=== PATIENT | female | born 1945 | race Caucasian/White ===

== ENCOUNTER 2018-10-27 16:05 | Observation (INO) ==
[2018-10-27] MEDS ORDERED: APRESOLINE IV ONE (16:26)
[2018-10-27] MEDS ORDERED: ZOFRAN IV ONE (16:26)
[2018-10-27] MEDS ORDERED: MORPHINE IV ONE (16:26)
--- NOTE | 2018-10-27 16:39 | EKG Report ---
Test Performed on : 10/27/2018 4:15:53 PM Test Reason : HTN Blood Pressure : / mmHG Vent. Rate : 085 BPM Atrial Rate : 085 BPM P-R Int : 148 ms QRS Dur : 076 ms QT Int : 380 ms P-R-T Axes : 055 032 059 degrees QTc Int : 452 ms Normal sinus rhythm. Nonspecific T wave abnormality Abnormal ECG No previous ECGs available Unconfirmed Result
[2018-10-27 16:58] LABS: BASO# 0.03 X1000 (0.0-0.2); BASO% 0.5 % (0.0-0.8); EOS# 0.21 X1000 (0.0-0.7); EOS% 3.4 % (0.0-10.0); HEMATOCRIT 41.1 % (37.0-47.0); HEMOGLOBIN 13.2 g/dL (12.0-16.0); IMM GRAN# 0.03 X1000 (0.0-0.04); IMM GRAN% 0.5 % (0.0-0.5); LYMPH# 1.67 X1000 (1.2-3.4); LYMPH% 27.3 % (20.5-51.1); MCH 28.2 PG (27-31); MCHC 32.1 g/dL (33-37); MCV 87.8 FL (81-99); MONO# 0.88 X1000 (0.11-0.59); MONO% 14.4 % (1.7-9.3); MPV 9.7 FL (7.4-10.4); NEUT% 53.9 % (42.2-75.2); PLT 294 X1000 (130-400); RBC 4.68 XMIL (4.2-5.4); RDW 14.2 % (11.5-14.5); WBC 6.12 X1000 (4.8-10.8)
--- NOTE | 2018-10-27 17:04 | Diag Imaging Result Doc PS360 ---
EXAM: CHEST-PORTABLE HISTORY: HTN,WEAKNES TECHNIQUE: Chest single view COMPARISON: None. FINDINGS: Poor inspiratory effort. The heart is mildly prominent. The vessels are not distended. There are no infiltrates. No effusion identified. IMPRESSION: Mildly prominent heart. Electronically signed by Laron Mora 10/27/2018 5:02 PM
[2018-10-27 17:14] LABS: INR 0.9; PROTIME 12.6 Seconds (11.0-16.0)
[2018-10-27 17:15] LABS: PTT 25.2 Seconds (22.3-41.8)
[2018-10-27 17:27] LABS: BILIRUBIN URINE NEGATIVE (NEGATIVE); BLOOD URINE NEGATIVE (NEGATIVE); CLARITY CLEAR (CLEAR); COLOR YELLOW; GLUCOSE URINE NEGATIVE (NEGATIVE); KETONE URINE NEGATIVE (NEGATIVE); LEUKOCYTES URINE TRACE (NEGATIVE); NITRITE URINE NEGATIVE (NEGATIVE); PH URINE 6.5; PROTEIN URINE 1+(30 mg/dL) mg/dL (NEGATIVE); UROBILINOGEN URINE NORMAL
[2018-10-27 17:35] LABS: CALCIUM 9.9 mg/dL (8.8-10.2); CREATININE 1.1 mg/dL (0.5-0.9); POTASSIUM 4.3 mmol/L (3.5-5.1)
[2018-10-27 17:36] LABS: URINE BACTERIA NEGATIVE /HFP; URINE EPITHELIAL CELLS <10 /HPF (<10); URINE RBC <10 /HPF (<10); URINE SOURCE CLEAN CATCH; URINE WBC <10 /HPF (<10); URINE YEAST PRESENT /HPF
--- NOTE | 2018-10-27 19:11 | PROVIDER DOCUMENTATION ---
This chart was entered by Lissette Brush Scribe, acting as scribe for Prabhjot Day MD. HPI-Neurological Disorder - General Source: patient, family (daughter) - History of Present Illness-Neuro Headache Location: reports: global Severity: reports: mild Onset/Duration: reports: this morning Timing: reports: improving Character of Altered Mental Status: reports: disoriented Any recent trauma/injury?: reports: none Character of Deficits: reports: new weakness, altered sensation, impaired speech New weakness or altered sensation location:: reports: general (diffuse) Cognitive Baseline: alert, oriented x3 Associated Symptoms: reports: headache, fatigue, slurred speech, weakness Similar Symptoms Previously?: No Recently seen or treated by another doctor?: No <Prabhjot Day - Last Filed: 10/27/18 19:11> <Reji Romero - Last Filed: 10/27/18 20:55> - General Chief Complaint: Altered Mental Status Stated Complaint: STROKE SX Time Seen by Provider: 10/27/18 16:33 Allergies/Adverse Reactions: Patient Allergies Allergy/AdvReac Type Severity Reaction Status Date / Time No Known Allergies Allergy Verified 10/27/18 16:24 Home Medications: Home Medication List Medication Instructions Recorded Confirmed Last Taken Type Ascorbic Acid [Vitamin C] 1 tab PO DAILY 10/27/18 10/27/18 Unknown History Atorvastatin Calcium 1 tab PO HS 10/27/18 10/27/18 Unknown History BENAZEpril [Lotensin] 1 tab PO DAILY 10/27/18 10/27/18 Unknown History Calcium Carbonate/Vitamin D3 1 tab PO DAILY 10/27/18 10/27/18 Unknown History [Calcium 600-Vit D3 800 Tablet] Canagliflozin [Invokana] 1 tab PO QAM 10/27/18 10/27/18 Unknown History Gemfibrozil [Lopid] 1 tab PO BID 10/27/18 10/27/18 Unknown History Glimepiride 1 tab PO DAILY 10/27/18 10/27/18 Unknown History Latanoprost 1 drp BOTH EYES HS 10/27/18 10/27/18 Unknown History Levothyroxine Sodium 1 tab PO DAILY 10/27/18 10/27/18 Unknown History Losartan Potassium 1 tab PO DAILY 10/27/18 10/27/18 Unknown History Metoprolol Succinate 1 tab PO DAILY 10/27/18 10/27/18 Unknown History Montelukast Sodium 1 tab PO DAILY 10/27/18 10/27/18 Unknown History Multivit,Th Iron,Other Min 1 tab PO DAILY 10/27/18 10/27/18 Unknown History [Complete Multivitamin] Raymond-3 Fatty Acids/Fish Oil [Fish 1 cap PO DAILY 10/27/18 10/27/18 Unknown History Oil 1,000 mg Softgel] Omeprazole 20 mg PO DAILY 10/27/18 10/27/18 Unknown History Sitagliptin Phosphate [Januvia] 1 tab PO DAILY 10/27/18 10/27/18 Unknown History - History of Present Illness-Neuro Nature of Presenting Problem: 73yof presents to ED cc headache, disoriented, speech little slurred and motor skills a little slow since this morning. Pt denies fever, abdominal pain, dysuria, chest pain, N/V/D. Pt is A&Ox3 and in no apparent distress upon exam. Pt has hx of HTN and b/p was 234/93 upon exam. (Prabhjot Day) Review of Systems - Adult - REVIEW OF SYSTEMS - ADULT Constitutional: reports: see HPI, fatique. denies: chills, fever Eyes: reports: no symptoms reported Ears, Nose, Mouth & Throat: reports: no symptoms reported Cardiovascular: reports: see HPI. denies: chest pain Respiratory: reports: no symptoms reported Gastrointestinal: reports: see HPI. denies: abdominal pain, diarrhea, nausea, vomiting Genitourinary: reports: see HPI. denies: dysuria Musculoskeletal: reports: no symptoms reported Integumentary: reports: no symptoms reported Neurological: reports: see HPI, headache/migraines, slurred speech (mild) Psychiatric: reports: no symptoms reported Endocrine: reports: no symptoms reported Hematologic/Lymphatic: reports: no symptoms reported Allergic/Immunologic: reports: no symptoms reported All Other Systems: Reviewed and Negative <Prabhjot Day - Last Filed: 10/27/18 19:11> Past History - Adult - PAST MEDICAL HISTORY-ADULT Review of Records: reports: Nursing Assessment Review, Medications Reviewed, Social history reviewed & non-contributory. Major Childhood Illnesses: reports: denies history Cardiovascular: reports: HTN Respiratory: reports: denies history Gastrointestinal: reports: denies history Obstetrical/Gynecological: reports: denies history Genitourinary: reports: denies history Musculoskeletal: reports: denies history Neurological: reports: denies history Endocrine/Immune: reports: Diabetes Other Conditions: reports: denies history - PRIOR SURGERIES/PROCEDURES Surgical/Procedure History: reports: appendectomy, cholecystectomy, hysterectomy - IMMUNIZATION STATUS Childhood Immunizations: See Nurse Assessment Flu Vaccine: See Nurse Assessment - FAMILY HISTORY Family History: reviewed, not pertinent - SOCIAL HISTORY Smoking: denies <Prabhjot Day - Last Filed: 10/27/18 19:11> Physical Exam- Neurological - Physical Exam-Neuro Initial Vital Signs Reviewed: Yes General Appearance: appears well, alert, no apparent distress. negative: anxious, combative Eye Exam: bilateral eye: normal inspection, PERRL HENMT: normocephalic/atraumatic, moist mucous membranes. negative: angioedema Head Injury: no evidence of injury. negative: active bleeding, Valencia's Sign, contusions, ecchymosis, flap, lacerations, raccoon eyes, swelling, tenderness, other Neck: non-tender, full range of motion, supple, normal inspection. negative: C- spine tenderness Respiratory: chest non-tender, lungs clear, normal breath sounds. negative: wheezing Cardiovascular: normal peripheral pulses, regular rate, rhythm, no edema. negative: bradycardia, tachycardia Abdominal Exam: normal bowel sounds, non tender, soft. negative: rebound Extremity: normal inspection. 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 negative: normal speech (slightly slurred) Coordination/Gait: normal finger to nose Motor/Sensory: no sensory deficit, no pronator drift. negative: no motor deficit (mildly slow) Integumentary: normal color. negative: ecchymosis, jaundice Psych/Mental Status: normal mood/affect, oriented x 3. negative: anxious, dishe veled - Glascow Coma Scale Best Eye Response: (4) open spontaneously Best Verbal Response: (5) oriented Best Motor Response: (6) obeys commands Total Glascow Score: 15 <Prabhjot Day - Last Filed: 10/27/18 19:11> Progress - PLAN OF CARE/RESULTS Result Diagrams: 10/27/18 16:45 10/27/18 16:45 - REASSESSMENT Reassessment #1 Time Reassessed: 18:27 Status: improving (H/A RESOLVE, BP DOWN OT 141/58. CT HEAD STILL PENDING.) - EKG 1 Time of EKG reading by physician:: 16:16 EKG Read and Signed by:: Prabhjot Day EKG Interpretation (*Must complete 3 of following elements*): Abnormal Rate: 85 Rhythm: NSR QRS: normal ST Wave: non-specific ST changes - XRAY 1 XRAY: Bilateral XRAY Study: Chest Impression: See EMR Report (MPRESSION: Mildly prominent heart. Electronically signed by Laron Mora 10/27/2018 5:02 PM) - CHANGE OF SHIFT REPORT (ED Provider) 1 Report Given and Care Transferred to:: DR Eric ROMERO Items Pending: CT/MRI Results <Prabhjot Day - Last Filed: 10/27/18 19:11> - PLAN OF CARE/RESULTS Result Diagrams: 10/27/18 16:45 10/27/18 16:45 - REASSESSMENT Reassessment #2 Time Reassessed: 19:50 Status: other (pt mildy confused. has some delay in comprehension, which is not normal for her as per the daughters. will admit, hospitalist paged.) - CONSULTS/PCP/HOSPITALIST Notification #1 *Consult/PCP/Hospitalist*: dr khan Time Discussed: 20:28 Consult Disposition: Admit <Reji Romero - Last Filed: 10/27/18 20:55> - PLAN OF CARE/RESULTS Progress/Plan/Lab Results: Vital Signs - 8 hr 10/27/18 16:17 10/27/18 17:14 Temperature 97.7 F Pulse Rate 87 80 Respiratory Rate 18 24 Blood Pressure 226/95 174/96 O2 Sat by Pulse Oximetry 95 97 Laboratory Results - last 24 hr 10/27/18 10/27/18 10/27/18 16:14 16:45 16:45 WBC 6.12 RBC 4.68 Hgb 13.2 Hct 41.1 MCV 87.8 MCH 28.2 MCHC 32.1 L RDW Std Deviation 14.2 Plt Count 294 MPV 9.7 Immature Gran % (Auto) 0.5 Neut % (Auto) 53.9 Lymph % (Auto) 27.3 Mcmullen % (Auto) 14.4 H Eos % (Auto) 3.4 Baso % (Auto) 0.5 Immature Gran # (Auto) 0.03 Neut # (Auto) 3.30 Lymph # (Auto) 1.67 Mcmullen # (Auto) 0.88 H Eos # (Auto) 0.21 Baso # (Auto) 0.03 PT INR PTT (Actin FS) Sodium 140 Potassium 4.3 Chloride 105 Carbon Dioxide 22 L Anion Gap 13 BUN 32 H Creatinine 1.1 H Estimated GFR/1.73 m2 48 BUN/Creatinine Ratio 29 Glucose 145 H POC Glucose 150 H Calculated Osmolality 289 Calcium 9.9 Magnesium Troponin T Free T4 Urine Source Urine Color Urine Clarity Urine pH Ur Specific [place] Urine Protein Urine Ketones Urine Blood Urine Nitrite Urine Bilirubin Urine Urobilinogen Urine Microscopic RBC Urine WBC Urine Microscopic WBC Ur Epithelial Cells Urine Bacteria Urine Yeast Urine Glucose 10/27/18 10/27/18 10/27/18 16:45 16:45 16:45 WBC RBC Hgb Hct MCV MCH MCHC RDW Std Deviation Plt Count MPV Immature Gran % (Auto) Neut % (Auto) Lymph % (Auto) Mcmullen % (Auto) Eos % (Auto) Baso % (Auto) Immature Gran # (Auto) Neut # (Auto) Lymph # (Auto) Mcmullen # (Auto) Eos # (Auto) Baso # (Auto) PT 12.6 INR 0.90 PTT (Actin FS) 25.2 Sodium Potassium Chloride Carbon Dioxide Anion Gap BUN Creatinine Estimated GFR/1.73 m2 BUN/Creatinine Ratio Glucose POC Glucose Calculated Osmolality Calcium Magnesium 1.6 Troponin T Free T4 1.82 H Urine Source Urine Color Urine Clarity Urine pH Ur Specific [place] Urine Protein Urine Ketones Urine Blood Urine Nitrite Urine Bilirubin Urine Urobilinogen Urine Microscopic RBC Urine WBC Urine Microscopic WBC Ur Epithelial Cells Urine Bacteria Urine Yeast Urine Glucose 10/27/18 10/27/18 16:45 17:00 WBC RBC Hgb Hct MCV MCH MCHC RDW Std Deviation Plt Count MPV Immature Gran % (Auto) Neut % (Auto) Lymph % (Auto) Mcmullen % (Auto) Eos % (Auto) Baso % (Auto) Immature Gran # (Auto) Neut # (Auto) Lymph # (Auto) Mcmullen # (Auto) Eos # (Auto) Baso # (Auto) PT INR PTT (Actin FS) Sodium Potassium Chloride Carbon Dioxide Anion Gap BUN Creatinine Estimated GFR/1.73 m2 BUN/Creatinine Ratio Glucose POC Glucose Calculated Osmolality Calcium Magnesium Troponin T < 0.010 Free T4 Urine Source CLEAN CATCH Urine Color YELLOW Urine Clarity CLEAR Urine pH 6.5 Ur Specific [place] 1.010 Urine Protein 1+(30 mg/dL) A Urine Ketones NEGATIVE Urine Blood NEGATIVE Urine Nitrite NEGATIVE Urine Bilirubin NEGATIVE Urine Urobilinogen NORMAL Urine Microscopic RBC <10 Urine WBC TRACE A Urine Microscopic WBC <10 Ur Epithelial Cells <10 Urine Bacteria NEGATIVE Urine Yeast PRESENT Urine Glucose NEGATIVE Orders Category Date Time Status Admit - [facility] Routine AdmDCTranf 10/27/18 20:48 Ordered Cardiac Monitoring DIRECTED Care 10/27/18 16:27 Active Neurological Check Q4H Care 10/27/18 20:49 Ordered Saline Loc DIRECTED Care 10/27/18 20:48 Ordered Saline Loc NOW Care 10/27/18 16:27 Active Vital Signs Order ROUTINE Care 10/27/18 20:48 Ordered Z-Document. for Tele Applied ORDERED Care 10/27/18 20:49 Ordered Heart Healthy Diet Diet 10/27/18 20:50 Ordered CHEST-PORTABLE [RAD] Stat Exams 10/27/18 16:[address] HEAD W/O CONTRAST [CT] Stat Exams 10/27/18 18:26 Completed MRI BRAIN W/WO CONTRAST [MRI] Stat Exams 10/27/18 20:48 Ordered BASIC METABOLIC PANEL [CHEM] Stat Lab 10/27/18 16:45 Completed CBC WITH ELECTRONIC DIFF [HEME] Stat Lab 10/27/18 16:45 Completed FREE T4 Stat Lab 10/27/18 16:45 Completed MAGNESIUM [CHEM] Stat Lab 10/27/18 16:45 Completed PROTIME WITH INR [COAG] Stat Lab 10/27/18 16:45 Completed PTT [COAG] Stat Lab 10/27/18 16:45 Completed TROPONIN T Stat Lab 10/27/18 16:[address] W/POSS RFLX CULT [URINALYSIS] Stat Lab 10/27/18 17:00 Completed URINE CULTURE [RM] Routine Lab 10/27/18 17:36 Ordered Hydralazine [Apresoline] Med 10/27/18 16:26 Discontinued 10 mg IV NOW ONE Morphine Med 10/27/18 16:26 Discontinued 4 mg IV NOW ONE Ondansetron [Zofran] Med 10/27/18 16:26 Discontinued 4 mg IV NOW ONE Telemetry [OM.EQ] Routine Oth 10/27/18 20:48 Ordered EKG [EKG] Stat Ther 10/27/18 16:28 Draft Departure - Departure Date of Disposition Decision: 10/27/18 Certified Medical Emergency: Emergent <Prabhjot Day - Last Filed: 10/27/18 19:11> - Departure Time of Disposition Decision: 19:55 Certified Medical Emergency: Emergent - Critical Care Note This patient required my direct & personal management of CC.: No <Reji Romero - Last Filed: 10/27/18 20:55> - Departure DIAGNOSIS: Uncontrolled hypertension, TIA (transient ischemic attack), Altered mental status Disposition: ADMITTED INPATIENT 09 Condition: Stable Additional Freetext Instructions: ED Follow Up Instructions: You have been treated by a care provider in the Emergency Department. These instructions are being provided to you so you can have an understanding of how to care for yourself upon discharge. Upon discharge from the Emergency Department, you are responsible for making arrangements for follow-up care by a physician of your choice. Take all prescribed medications as directed. Return to the Emergency Department immediately for any new or worsening symptoms. You may call the Physician Referral phone number at [phone] to obtain a list of Physicians who are taking new patients. Referrals and Follow-Ups: Fabien Lucas MD [Primary Care Provider] - Attestation - Physician/ KEITH Attestation Patient care was provided by Advanced Practice Provider:: No The physician spent face to face time with patient:: Yes Advanced Practice Provider documentation review:: Supervising physician onsite and consulted in the evaluation and care of this patient. The physician did have a face to face encounter with the patient. <Prabhjot Day - Last Filed: 10/27/18 19:11> - NIH Stroke Scale NIH Type: Discharge Evaluation Level of Consciousness: 0-Alert LOC Questions (ask month and age): 0-Answers Both Correctly LOC Commands (ask to open & close eyes;make a fist, let go): 0-Obeys Both Correctly (SLOW IN EXECUTION) Best Gaze (horizontal eye movement): 0-Normal Visual (use finger movement, counting or visual threat): 0-No Visual Loss Facial Palsy (show teeth or raise eyebrows & close eyes tght: 0-Symmetrical Movement Motor Function-left arm: 0-Normal Motor Function-right arm: 0-Normal Motor Function-left le-Normal Motor Function-right le-Normal Limb Ataxia(dhrzjv-lhfv-jkppnd, or heel to hewitt): 0-No Ataxia (PT NEEDS DEMONSTRATION EVERYTIME, NOT COMPREHENDING NORMALLY) Sensory(pin prick to face,arms,trunk,legs-compare side/side): 0-No Ataxia Best Language(name item/read sentence.Ex-Down to Earth): 0-No Aphasia Dysarthria(Pt read words or say words Ex.Mama,Tip-Top,Thanks: 0-Normal Articulation Extinction and Inattention: 0-Normal NIH Total Score: 0 <Reji Romero - Last Filed: 10/27/18 20:55> This chart was documented by the indicated scribe, (Lissette Brush, Scribe) and accurately reflects the services I performed and decisions made by me, [facility],Prabhjot Pedroza MD, as attested by the provider's signature.
--- NOTE | 2018-10-27 19:32 | Diag Imaging Result Doc PS360 ---
EXAM: CT HEAD W/O CONTRAST HISTORY: STROKE Vs HTN ENCEPHALOPATHY TECHNIQUE: CT head without contrast COMPARISON: 02/24/2018 FINDINGS: No parenchymal hemorrhage. No epidural or subdural hematoma. No subarachnoid hemorrhage. There are chronic microvascular ischemic changes with multiple old small bilateral infarcts. No mass identified on this noncontrasted exam. No hydrocephalus. No sinus opacification although there is multisinus mucosal thickening and a small amount of mucus. IMPRESSION: 1.No hemorrhage 2.Chronic microvascular ischemic changes with multiple old small bilateral infarcts This exam was performed using automated exposure control, adjustment of mA or kV according to patient size, and/or use of iterative reconstruction technique. Electronically signed by Laron Mora 10/27/2018 7:30 PM
[2018-10-28 02:16] LABS: BILIRUBIN URINE NEGATIVE (NEGATIVE); BLOOD URINE NEGATIVE (NEGATIVE); CLARITY CLEAR (CLEAR); COLOR YELLOW; GLUCOSE URINE NEGATIVE (NEGATIVE); KETONE URINE NEGATIVE (NEGATIVE); LEUKOCYTES URINE TRACE (NEGATIVE); NITRITE URINE NEGATIVE (NEGATIVE); PROTEIN URINE 1+(30 mg/dL) mg/dL (NEGATIVE); SP GRAVITY URINE 1.015; URINE BACTERIA NEGATIVE /HFP; URINE EPITHELIAL CELLS <10 /HPF (<10); URINE RBC <10 /HPF (<10); URINE SOURCE CLEAN CATCH; URINE WBC <10 /HPF (<10); URINE YEAST PRESENT /HPF; UROBILINOGEN URINE NORMAL
[2018-10-28] MEDS: VITAMIN C PO SCH (11:48)
[2018-10-28] MEDS: TOPROL XL PO SCH (11:48)
[2018-10-28] MEDS: LOTENSIN PO SCH (11:48)
--- NOTE | 2018-10-28 12:48 | HISTORY AND PHYSICAL ---
PRIMARY CARE PROVIDER: Dr. Fabien Lucas. CHIEF COMPLAINT: Confusion. HISTORY OF PRESENT ILLNESS: Ms. Yazmin Cruz is a 73-year-old, female with a medical history of multiple bilateral infarcts in the past, but never diagnosed in the past that showed up on a head CT this admission. Also, medical history of diabetes, hypertension, hyperlipidemia and hypothyroidism who presents with confusion that started yesterday around 2:30 in the afternoon. So yesterday's events, she woke up at 7:15, drank her Glucerna, walked her daughter to the door, and was normal at that time. Then around 2:30 in the afternoon, she went crying to the grandson that she was not feeling good. She was confused. Her blood sugar was 167. Her blood pressure was 237/88 so she was brought here. Head CT showed multiple bilateral infarcts that were old, but nothing new or acute. She still is confused, and was given medication to lower her blood pressure, and then around 1:30 this morning started clearing back up after sleeping well. A full workup will include an MRI and MRA of the brain. We will monitor her. We will have her on aspirin and statin. PAST MEDICAL HISTORY: 1. Diabetes mellitus type 2. 2. Hyperlipidemia. 3. Hypertension. 4. Hypothyroidism. 5. Hepatic steatosis. 6. Arthritis. 7. Multiple bilateral cerebral infarcts. 8. Seasonal allergies where she gets 2 shots a week. PAST SURGICAL HISTORY: 1. Cholecystectomy. 2. Hysterectomy. 3. Appendectomy. 4. Thyroidectomy. 5. Bilateral cataracts. SOCIAL HISTORY: Denies tobacco, alcohol, or illicit drug use. Lives with her daughter Fabiana Arthur who is also the power of shactor. She got remarried around 2 years ago, but she is currently in the middle of . FAMILY HISTORY: The patient's mother had 2 strokes. Brother had a stroke. Daughter had a stroke but it was hemorrhagic stroke from two aneurysms. Sister had a heart attack, and another sister had a stroke. ALLERGIES: No known drug allergies. HOME MEDICATIONS: 1. Atorvastatin 80 mg p.o. nightly. 2. Calcium carbonate with vitamin D 1 tablet p.o. daily. 3. Multivitamin with iron 1 tablet p.o. daily. 4. Fish Oil 1 capsule p.o. daily. 5. Glimepiride 4 mg p.o. daily. 6. Invokana 30 mg p.o. daily. 7. Januvia 100 mg p.o. daily. 8. Latanoprost to both eyes 1 drop. 9. Levothyroxine 125 mcg p.o. daily. 10. Gemfibrozil 600 mg p.o. twice daily. 11. Losartan 50 mg p.o. daily. 12. Benazepril 20 mg p.o. daily. 13. Metoprolol 50 mg p.o. daily. 14. Singulair 10 mg p.o. daily. 15. Omeprazole 20 mg p.o. daily. 16. Vitamin C 1000 mg p.o. daily. REVIEW OF SYSTEMS: A 14 point review of systems are complete and all were negative except those mentioned above in HPI. PHYSICAL EXAMINATION: VITAL SIGNS: Temperature 98.3 degrees, heart rate 92, respiratory rate 18, blood pressure 151/52, and O2 saturation 96% on room air. GENERAL: Ms. Yazmin Cruz is a 73-year-old female. She is in no acute distress. She is able to answer questions appropriately. HEENT: Atraumatic, normocephalic. Pupils equal, round, and reactive to light. Extraocular movements intact. Mucous membranes are moist. NECK: Trachea midline. CARDIOVASCULAR: S1, S2. Regular rate and rhythm. No rubs, gallops, or murmurs. No lower extremity edema. +2 dorsalis and radial pulses. Negative JVD or carotid bruits. PULMONARY: Clear to auscultation. Bilateral breath sounds. No accessory muscle use or work of breathing noted. GI: Abdomen is soft, nontender, and nondistended. Positive bowel sounds x4. NEUROLOGIC: Alert and oriented times name and place. Confused to the year and date. Followed commands. Sensory is intact. EXTREMITIES: Moves all extremities. 5/5 strength in all extremities and sensory is completely intact. Range of motion is intact. SKIN: Warm, dry, and intact. LABORATORY DATA: White blood cells 6000, hemoglobin 13, hematocrit 41, and platelet count 294,000. INR 0.90. PTT 25.2. Sodium 140, potassium 4.3, BUN 32, and creatinine is 1.1. Glucose 145, calcium 9.9, and magnesium 1.6. Troponin less than 0.01. T4 1.82. Protein in the urine 1+ and trace white blood cells. IMAGING: Chest x-ray mildly prominent heart. Head CT with no hemorrhage. Chronic microvascular ischemic changes with multiple old small bilateral infarcts. EKG normal sinus rhythm with rate of 85. QTc 452. ASSESSMENT/PLAN: 1. Hypertensive encephalopathy is likely the cause of her symptoms of confusion and improved after blood pressure was controlled, and is almost back to normal. Head CT did not show any acute strokes it did show multiple old bilateral strokes. We will get an MRI and MRA of the brain and carotid ultrasound to evaluate. 2. Transient ischemic attack versus new CVA with history of old stroke. Please see #1. 3. Uncontrolled hypertension. She got Apresoline, morphine and Zofran in the ER. Blood pressure improved to normal. Today, we will start her back on her antihypertensives that she takes every morning, and we will monitor her. Her admission blood pressure was 226/95, and got down to 143/41. There is protein in the urine just a small amount. 4. Diabetes mellitus type 2. We will do pattern blood glucoses and sliding scale insulin. She has also been resumed on her Januvia. 5. Hypothyroidism. Continue Synthroid. 6. Deep venous thrombosis prophylaxis. SCD's. Dictated by TIFFANY Chen for Bashir Hicks MD Addendum: Patient seen and examined by myself. Agree with TIFFANY note. It reflects my assessment and plan. Patient is being admitted to hospital for hypertensive encephalopathy so will admit her to hospital. Will monitor BP closely and will order MRI/MRA of brain because of history of stroke. Will monitor patient closely. cc: TIFFANY Chen MD [facility]
[2018-10-28] MEDS: COZAAR PO SCH (13:35)
[2018-10-28] MEDS: AMARYL PO SCH (13:35)
[2018-10-28] MEDS: JANUVIA PO SCH (13:35)
[2018-10-28] MEDS: ASPIRIN PO SCH (13:35)
[2018-10-28] MEDS: HUMULIN R (PARKWAY) SUBQ SCH ×3 (13:36→21:51)
[2018-10-28] MEDS: CALTRATE 600 + D PO SCH (13:39)
--- NOTE | 2018-10-28 17:45 | Diag Imaging Result Doc PS360 ---
MRI BRAIN W/WO CONTRAST - 10/28/2018 INDICATION: TIA, AMS, UNCONTROLLED HYPERTENSION COMPARISON: Head CT 10/27/2018 FINDINGS: There is no area of restricted diffusion. The ventricles and sulci are normal in size and contour. There are numerous old lacunar infarctions in the basal ganglia. There is mild to moderate cerebral white matter chronic microvascular disease. No intracranial mass or hemorrhage. There is no abnormal contrast enhancement.. Pituitary is atrophic. IMPRESSION: No acute process. Electronically signed by Luis Cavanaugh 10/28/2018 5:42 PM
--- NOTE | 2018-10-28 17:50 | Diag Imaging Result Doc PS360 ---
MRA BRAIN W/O CONTRAST - 10/28/2018 INDICATION: r/o cva; cva symptoms TECHNIQUE: Noncontrast time of flight technique was used COMPARISON: None FINDINGS: The major intracranial arteries are all patent. No aneurysm or stenosis. IMPRESSION: Negative exam. Electronically signed by Luis Cavanaugh 10/28/2018 5:47 PM
[2018-10-28] MEDS ORDERED: LIPITOR PO SCH (21:00)
[2018-10-28] MEDS ORDERED: XALATAN 0.005% OPH SOLN BOTH EYES SCH (21:00)
[2018-10-28] MEDS: LOPID PO SCH (21:50)
[2018-10-29] MEDS: SYNTHROID PO SCH ×4 (05:45→07:40)
[2018-10-29] MEDS: HUMULIN R (PARKWAY) SUBQ SCH ×2 (06:26→11:33)
[2018-10-29] MEDS ORDERED: PRILOSEC PO SCH (07:00)
[2018-10-29] MEDS ORDERED: SYNTHROID PO SCH (07:00)
[2018-10-29 07:49] VITALS: BP 138/40
[2018-10-29] MEDS ORDERED: FISH OIL CONCENTRATE PO SCH (09:00)
[2018-10-29] MEDS ORDERED: THERA M PLUS PO SCH (09:00)
[2018-10-29] MEDS ORDERED: SINGULAIR PO SCH (09:00)
[2018-10-29] MEDS: AMARYL PO SCH (09:45)
[2018-10-29] MEDS: TOPROL XL PO SCH (09:45)
[2018-10-29] MEDS: ASPIRIN PO SCH (09:45)
[2018-10-29] MEDS: LOPID PO SCH (09:45)
[2018-10-29] MEDS: COZAAR PO SCH (09:46)
[2018-10-29] MEDS: VITAMIN C PO SCH (09:46)
[2018-10-29] MEDS: LOTENSIN PO SCH (09:46)
[2018-10-29] MEDS: JANUVIA PO SCH (09:46)
[2018-10-29] MEDS: CALTRATE 600 + D PO SCH (09:47)
--- NOTE | 2018-10-29 14:13 | DISCHARGE SUMMARY ---
ADMISSION DATE: 10/27/2018 DISCHARGE DATE: 10/29/2018 DISCHARGE DIAGNOSES: 1. Transient ischemic attack. 2. Hypertension. 3. Type 2 diabetes mellitus. 4. Hypothyroidism. HOSPITAL COURSE: Ms. Yazmin Cruz is a 73-year-old female who was admitted to the hospital after she was found to have acute onset of confusion. She seen here at the emergency room where she had a head CT scan done that showed multiple bilateral lacunar infarcts which were old, but nothing new was found. She subsequently had an MRI of the brain that showed similar infarcts, but no acute infarcts were noted. She was noted to have complete resolution of her symptoms without any intervention. Her condition has been stable, and therefore she is going to be discharged home today. DISCHARGE MEDICATIONS: 1. Vitamin C 1000 mg orally once daily. 2. Aspirin 81 mg orally once daily. 3. Atorvastatin 80 mg orally once daily at bedtime. 4. Benazepril 20 mg orally once daily. 5. Calcium plus vitamin D 600/800 orally once daily. 6. Gemfibrozil 600 mg orally twice daily. 7. Glimepiride 4 mg orally once daily in the morning. 8. Levothyroxine 125 mcg orally once daily. 9. Losartan 50 mg orally once daily. 10. Metoprolol ER 50 mg orally once daily. 11. Montelukast 10 mg orally once daily. 12. Multivitamin orally once daily. 13. Fish Oil 1000 mg orally once daily. 14. Omeprazole 20 mg orally once daily in the morning. 15. Januvia 100 mg orally once daily. 16. Invokana 300 mg orally once daily in the morning. FOLLOWUP: She will follow with Dr. Lucas in approximately 1 week. We are also going to refer her to Neurology in [place] as per the patient's family wishes for further evaluation of her recurrent TIA. CONDITION: Stable. DISPOSITION: Home. cc: Roland Fleming MD
== END 2018-10-29 12:15 | disposition home or self-care (01) ==
LOC: P.MEDSURG 16:05 → P.ED 16:05 → SUATTDRO 21:50
PROVIDERS: ATTEND Internal Medicine